=== PATIENT | female | born 1950 | race Caucasian/White ===

== ENCOUNTER 2017-05-16 13:28 | Inpatient (IN) | payer MEDICARE ==
[~2017-05-16] VITALS: Ht 160 cm; Wt 60.8 kg
[2017-05-16] VITALS (8 sets, daily range): BP systolic 123–164; BP diastolic 60–80; PULSE 64–93; RESP 14–22; O2SAT 93–99
[~2017-05-16 13:28] MED LIST: ASPI-973 PO; ATOR40TA69 PO; GLBR5T PO; INSU100I13 SUBQ; LISI40TA PO; METF500T4 PO; METO50TA3 PO; SPIR25TA PO
--- NOTE | 2017-05-16 13:38 | ED.REPORT ---
HPI-General Illness Date of Service May 16, 2017 ED Provider: Samir Paredes MD Pt is a 66 year old female with a hx of kidney stone with sepsis last year, HTN , DM and hyperlipidemia presenting to the ED complaining of 8/10 left flank pain sudden onset around 0930 this morning. Associated symptoms include shaking chills, nausea, vomiting. The pain is non radiating and is not exacerbated by movement. Denies any vaginal bleeding, urinary symptoms, dysuria, chest pain, vision changes, right sided abdominal pain, focal weakness, bloody stool, or any other symptoms at this time. Nursing Notes Stated Complaint: BACK PAIN Chief Complaint: Flank pain Nursing Notes Reviewed: Yes Allergies: Coded Allergies: No Known Allergies (Verified Allergy, Unknown, 05/16/17) Scheduled Aspirin (Aspirin) 81 Mg Tablet 81 MG PO DAILY Atorvastatin Calcium (Atorvastatin Calcium) 40 Mg Tablet 40 MG PO HS Glyburide (Glyburide) 5 Mg Tab 10 MG PO BIDWM Insulin Glargine (Lantus U100 Solostar Insulin Pen) 100 Unit/1 Ml Insuln.pen 12 UNITS SUBQ noon Lisinopril (Lisinopril) 40 Mg Tablet 40 MG PO DAILY Metformin (Metformin) 500 Mg Tablet 1,000 MG PO BIDWM Metoprolol Tartrate (Metoprolol Tartrate) 50 Mg Tablet 75 MG PO BID Spironolactone (Aldactone) 25 Mg Tablet 25 MG PO DAILY General Time Seen by MD: 13:37 Chief Complaint Other (Flank pain) Hx Obtained From: Patient, Spouse Arrived By: Walk-in Sudden in Onset?: Yes Onset Occurred: 5 - 8 hours ago Symptom Duration: Since onset Location: : Abdomen: Back Quality: Painful Severity: Current: Pain level 9 out of 10 Severity: Maximum: Severe Recent Healthcare: No recent doctor visit, No recent hospitalization Similar Sx Previous: Yes Past Medical History Past Medical History hypertension diabetes high cholesterol kidney stones with admission for sepsis in April 2016 Past Surgical History Reports: Appendectomy Smoking History Former Smoker Social History Alcohol Use: Denies alcohol use Drug Use: Denies drug use Other Social History: Good social support Ambulatory Status Independent Review of Systems Full Review of Systems Constitutional: Reports: Malaise Eyes: Denies: Blurred bilateral, Visual loss bilateral Ears / Nose / Throat: Denies: Hearing loss bilateral, Nasal congestion Respiratory: Denies: Shortness of breath Cardiovascular: Denies: Chest pain GI: Reports: Nausea, Vomiting, Denies: Abdominal pain, Bloody/tarry stool Female: Reports: Flank pain, Denies: Dysuria, Hematuria, Incontinence, Urinary frequency, Urinary urgency , Urination decreased, Urination increased, Vaginal bleeding - abnl Musculoskeletal: Denies: Extremity pain, Extremity swelling Neurologic: Denies: Focal weakness, Vision change Psychiatric: Denies: Agitation Complete sys rev & neg: except as marked. Physical Exam Nursing note and vitals reviewed. Constitutional: Well-developed, well-nourished elderly female sitting up in bed ; appears uncomfortable. Head: Normocephalic and atraumatic. Mouth/Throat: Oropharynx is clear and moist. No oropharyngeal exudate. Eyes: EOM are normal. Pupils are equal, round, and reactive to light. Neck: Supple, no tracheal deviation. Cardiovascular: Normal rate, regular rhythm. Equal and intact distal pulses throughout. Pulmonary/Chest: Effort normal and breath sounds normal. No respiratory distress. Abdominal: Soft. No distension. There is no tenderness, rebound, or guarding. Bowel sounds present. Musculoskeletal: Range of motion grossly intact, moving all extremities. No edema or tenderness appreciated. Back: Left CVA tenderness. Neurological: AOx3. Grossly nonfocal exam. Strength and sensation intact and equal to bilateral upper and lower extremities. Skin: Warm and dry, no rashes or pallor appreciated. Psychiatric: Appropriate mood and affect. Behavior appears normal. Vital Signs Vital Signs Date Time Temp Pulse Resp B/P Pulse Ox O2 Delivery O2 Flow Rate FiO2 05/16/17 17:56 37.2 80 16 123/80 97 Room Air 05/16/17 15:54 91 14 157/73 95 Room Air 05/16/17 15:45 38.2 93 18 93 Room Air 05/16/17 13:45 36.2 64 18 164/78 99 Room Air Initial VS: Reviewed Interpretation & Diagnostics Lab Results Interpretation Result Diagram: 05/16/17 1419 05/16/17 1419 Test 05/16/17 14:19 05/16/17 14:44 05/16/17 18:40 White Blood Count 13.8th/mm3 (3.8-10.1) Red Blood Count 4.16mil/mm3 (3.90-5.20) Hemoglobin 12.4g/dL (12.0-15.6) Hematocrit 37.1% (35.0-46.0) Mean Corpuscular Volume 89.2fL (81-100) Mean Corpuscular Hemoglobin 29.8pg (27.0-35.0) Mean Corpuscular Hemoglobin Concent 33.4% (32.0-37.0) Red Cell Distribution Width 12.7% (12.3-15.4) Platelet Count 280bil/L (150-400) Neutrophils (%) (Auto) 83.5% (40-74) Lymphocytes (%) (Auto) 8.9% (14-46) Monocytes (%) (Auto) 6.7% (4-12) Eosinophils (%) (Auto) 0.5% (0-5) Basophils (%) (Auto) 0.2% (0-3) Sodium Level 137mEq/L (134-144) Potassium Level 4.3mEq/L (3.5-5.2) Chloride Level 100mEq/L (97-108) Carbon Dioxide Level 20mmol/L (18-29) Blood Urea Nitrogen 25mg/dL (8-27) Creatinine 0.83mg/dL (0.57-1.00) Estimat Glomerular Filtration Rate 98mL/min (>59) Glucose Level 304mg/dL (60-99) Lactic Acid Level 1.5mmol/L (0.4-2.0) Calcium Level 9.3mg/dL (8.5-10.1) Total Bilirubin 0.4mg/dL (0.0-1.2) Aspartate Amino Transf (AST/SGOT) 32U/L (0-50) Alanine Aminotransferase (ALT/SGPT) 46U/L (0-32) Alkaline Phosphatase 194U/L (25-165) Total Protein 8.1g/dL (6.4-8.4) Albumin 4.1g/dL (3.4-5.0) Urine Color Dark yellow (YELLOW) Urine Appearance Hazy (CLEAR,HAZY) Urine pH 5.5 (5.0-8.0) Urine Specific [place] 1.015 (1.003-1.035) Urine Protein 100mg/dL (NEG,TRACE) Urine Glucose (UA) 1000mg/dL (NEGATIVE) Urine Ketones 15mg/dL (NEGATIVE) Urine Occult Blood Trace (NEGATIVE) Urine Nitrite Positive (NEGATIVE) Urine Bilirubin Negative (NEGATIVE) Urine Urobilinogen 2.0mg/dL (NORMAL) Urine Leukocyte Esterase Trace (NEGATIVE) Urine RBC 0-2/hpf (0-2) Urine WBC 11-50/hpf (0-5) Urine Epithelial Cells Few/hpf (NONE-MOD) Urine Crystals None seen (NONE SEEN) Urine Bacteria Many/hpf (NONE-FEW) Urine Hyaline Casts None/lpf (NONE) Urine Granular Casts None seen (NONE SEEN) Urine Waxy Casts None seen (NONE SEEN) Urine Red Blood Cell Casts None seen (NONE SEEN) Urine White Blood Cell Casts None seen (NONE SEEN) Urine Mucus None seen (None Seen) Urine Trichomonas None seen (NONE SEEN) Urine Yeast None (NONE SEEN) Urinalysis Comment None Hold Urine Received (Received) Prothrombin Time 10.0sec (8.1-12.5) Prothromb Time International Ratio 0.94ratio Activated Partial Thromboplast Time 24.3sec (22.8-33.0) ECG Interpretation ECG Interpretation: Probable LVH with secondary repol abnormality. Time: 16:24 Interpreted by: ED physician Normal ECG Interpretation: Normal rate (92), Normal sinus rhythm X-Ray Chest Interpretation Chest Xray Interpretation: IMPRESSION: Normal for age, source of pain is not found. Dictated by: Clayton Martinez M.D. on 05/16/2017 at 16:52 View: Portable, 1 view Interpretation / Wet Read by: Interpret - Radiologist CT Abd / Pelvis Interpretation IMPRESSION: 1. Left-sided hydronephrosis and ureterectasis with a 4 mm calculus in the bladder likely representing the sequelae of this recently passed calculus. Mass like soft tissue swelling at the left UVJ is likely inflammatory. Recommend correlation with endoscopy to exclude a bladder malignancy. 2. Tiny locule of gas in the proximal left ureter. Please correlate clinically for any evidence of infection. 3. Bilateral nonobstructing renal calculi measuring 10 mm in the left kidney. 4. A segment of the sigmoid colon and nearly the entire transverse colon are decompressed with wall thickening. Superimposed colitis or less likely a mass cannot be excluded. Recommend correlation with colonoscopy if patient has not undergone colonoscopy. Dictated by: Otis Song M.D. on 05/16/2017 at 17:02 Study type: Abdominal CT IV contrast Interpretation / Wet Read by: Interpret - Radiologist Re-Eval/Medical Decision Med Decision/Clinical Course In summary, 66-year-old female with a complex past medical history including severe sepsis last year thought to be secondary to an infected kidney stone presenting to the ED for evaluation of left flank pain, nausea, and vomiting. Differential is broad and includes small bowel obstruction, ureterolithiasis, nephrolithiasis, diverticulitis, pyelonephritis, intra-abdominal mass, hernia, etc. Upon arrival to the ED, patient appears uncomfortable, however vital signs grossly within normal limits. Patient given multiple liters of IV fluids and also multiple doses of Dilaudid and Zofran here in the ED for her symptoms. Initial workup notable for urinalysis consistent with infection, glucose 304, magnesium 1.3, alkaline phosphatase 194, ALT 46, white blood cell count 13.8 with a neutrophilic predominance. CBC and CMP otherwise grossly within normal limits. Magnesium repletion initiated. EKG with no acute ischemic changes appreciated. Upon reassessment, the patient was noted to be febrile. Given that she meets SIRS criteria and has a source of infection, patient was started on vancomycin, Zosyn, and Flagyl here in the ED for sepsis. Lactic acid of 1.5. CT scan as per above, notable for a stone in her bladder and some gas in the ureter, as well as nephrolithiasis. Given her history, urology was consulted; appreciate recommendations. No reason for acute intervention at this time, however they may consider doing a scope given the swelling around the ureter and the CT read. Discussed with patient, including need for admission. No further questions. Time of Eval: 18:00 Patient Status: Condition improved Re-Evaluation/Progress Note: Discussed CT and lab results and plan for admission. Pt understands and agrees with plan. Consultation #1: Referral / Consult Name: Trevor Bland MD Consulted With: Urology Call Returned at: 17:40 Willow Machine Operator: Agrees with plan Note: Nothing else to do from a urologic perspective right now but they will see them as an inpatient. Consultation #2: Referral / Consult Name: Fidel John MD Consulted With: Hospitalist Call Returned at: 18:34 Willow Machine Operator: Will see patient, Agrees with plan, Accepts admit Counseled Regarding: Diagnosis, Lab results, Need for admission Discharge & Departure Primary Impression: Sepsis Sepsis type: sepsis due to unspecified organism Qualified Code: A41.9 - Sepsis, unspecified organism Additional Impression: Urinary tract infection Urinary tract infection type: site unspecified Hematuria presence: without hematuria Qualified Code: N39.0 - Urinary tract infection, site not specified Disposition: ADMITTED TO HOSPITAL Discharge Condition All VS Reviewed: Yes Condition: Stable Referrals: Venus Bardales PA-C (PCP) Cristy Attestation Portions of this note were transcribed by Lilian Durbin. I, Dr. Paredes personally performed the history, physical exam and medical decision-making; I reviewed and confirmed the accuracy of the information in the transcribed note. Signed by: Cristy Almanzar, 05/16/2017. copies to: Venus Bardales PA-C, William B MD May 16, 2017 13:38 LILIAN DURBIN May 16, 2017 15:50
[2017-05-16] MEDS ORDERED: Ondansetron 2 mg/mL 2 mL Inj ONE (14:20)
[2017-05-16] MEDS: HYDROmorphone 0.5 mg/0.5 mL iSecure Syringe IVPUSH PRN ×2 (14:44→15:52)
[2017-05-16 15:04] LABS: BASOPHILS % (AUTO) 0.2 % (0-3); EOSINOPHILS % (AUTO) 0.5 % (0-5); MONOCYTES % (AUTO) 6.7 % (4-12); Mean Corpuscular Hemoglobin 29.8 pg (27.0-35.0); Mean Corpuscular Volume 89.2 fL (81-100); NEUTROPHILS % (AUTO) 83.5 % (40-74); Platelet Count 280 bil/L (150-400)
[2017-05-16 15:14] LABS: Magnesium 1.3 mg/dL (1.6-2.6)
[2017-05-16] MEDS ORDERED: 0.9% Sodium Chloride 1,000 ML IV ONE ×2 (16:07→19:20)
[2017-05-16 16:09] LABS: APPEARANCE,URINE HAZY (CLEAR,HAZY); COLOR,URINE DARK YELLOW (YELLOW); PH,URINE 5.5 (5.0-8.0)
[2017-05-16 16:10] LABS: OCCULT BLOOD,URINE TRACE (NEGATIVE)
[2017-05-16] MEDS ORDERED: metroNIDAZOLE Inj 500 MG in IV Premix 1 EACH IV ONE (16:10)
[2017-05-16] MEDS ORDERED: Piperacillin-Tazo 3.375 Gm Inj 3.375 GM in Dextrose 5% Minibag Plus 50 ML IV ONE (16:10)
[2017-05-16] MEDS ORDERED: Vancomycin Dose per Pharmacist XX ONE (16:10)
[2017-05-16] MEDS ORDERED: Vancomycin Inj 1,000 MG in IV Premix 1 EACH IV ONE (16:30)
--- NOTE | 2017-05-16 16:54 | DRSVH ---
PROCEDURE: X-RAY CHEST ONE VIEW, PORTABLE ([id number]) INDICATIONS: abd pain, fever TECHNIQUE: One view of the chest was acquired. COMPARISON: [facility], CR, XR CHEST 2VW, 06/14/2016, 16:41. [facility], CR , XR CHEST 2VW, 04/28/2016, 8:48. FINDINGS: Surgical changes and devices: None. Lungs and pleura: No pleural effusions or pneumothorax. Lungs are clear. Mediastinum: Mediastinal contours appear normal. Heart size is normal. Bones and chest wall: No suspicious bony lesions. Overlying soft tissues appear unremarkable. IMPRESSION: Normal for age, source of pain is not found. Dictated by: Clayton Martinez M.D. on 05/16/2017 at 16:52 Approved by: Clayton Martinez M.D. on 05/16/2017 at 16:52
--- NOTE | 2017-05-16 17:12 | DRSVH ---
PROCEDURE: CT ABDOMEN AND PELVIS WITH CONTRAST ([id number]) INDICATIONS: abdominal pain, back pain, n/v; hx infected stone TECHNIQUE: After the administration of intravenous contrast, 5 mm thick sections acquired from the diaphragm to the symphysis. 5 mm coronal and sagittal reformats were acquired. For radiation dose reduction, the following was used: automated exposure control, adjustment of mA and/or kV according to patient siz e. COMPARISON: None. FINDINGS: Image quality: Excellent. ABDOMEN: Lung bases: Lung bases are clear. Heart size is normal. Solid organs: Cholecystectomy with compensatory intra and extrahepatic biliary ductal dilatation. Nor mal liver parenchyma. The pancreas, spleen, adrenal glands are normal. Left-sided hydronephrosis and ureterectasis. 4 mm calculus within the bladder. There is a nonobstructing 1 cm left renal calculus. Small locule gas in the proximal left ureter. Perinephric edema. Nonobstructing 3 mm inferior right renal pole calculus. No right-sided hydronephrosis or ureterectasis. Uterus is present. Peritoneum and bowel: Mild wall thickening in the sigmoid colon (se 2 im 71). Colonic diverticulosis. The transverse colon is decompressed. No obstruction or perforation. Normal appendix and small bowel . Nodes and vessels: No retroperitoneal or mesenteric adenopathy by size criteria. Aorta and inferior vena cava are normal in size. Miscellaneous: No ventral hernias. PELVIS: Genitourinary: Prominence of the bladder at the UVJ measuring 1.5 CM. Miscellaneous: No inguinal hernias or adenopathy. Bones: No suspicious bony lesions. No vertebral body compression fractures. IMPRESSION: 1. Left-sided hydronephrosis and ureterectasis with a 4 mm calculus in the bladder likely representin g the sequelae of this recently passed calculus. Mass like soft tissue swelling at the left UVJ is li ceci inflammatory. Recommend correlation with endoscopy to exclude a bladder malignancy. 2. Tiny locule of gas in the proximal left ureter. Please correlate clinically for any evidence of in fection. 3. Bilateral nonobstructing renal calculi measuring 10 mm in the left kidney. 4. A segment of the sigmoid colon and nearly the entire transverse colon are decompressed with wall t hickening. Superimposed colitis or less likely a mass cannot be excluded. Recommend correlation with colonoscopy if patient has not undergone colonoscopy. Dictated by: Otis Song M.D. on 05/16/2017 at 17:02 Approved by: Oits Song M.D. on 05/16/2017 at 17:10
[2017-05-16 18:48] LABS: INR 0.94 ratio
[2017-05-16] MEDS ORDERED: Magnesium Sulf 2 Gm/50mL Water 2 GM in IV Premix 1 EACH IV ONE (19:25)
[2017-05-16 20:01] LABS: Magnesium 1.1 mg/dL (1.6-2.6)
[2017-05-16] MEDS ORDERED: Ondansetron 2 mg/mL 2 mL Inj IVPUSH PRN (21:25)
[2017-05-16] MEDS ORDERED: Polyethylene Glycol (PEG) 17 Gm Powder PO PRN (21:25)
[2017-05-16] MEDS ORDERED: Alum-Mag Hydrox-Simeth 30 mL Suspension PO PRN (21:25)
[2017-05-16] MEDS ORDERED: AMLO10TA3 PO (21:45)
[2017-05-16] MEDS ORDERED: Magnesium Sulf 4 Gm/100 mL H2O 4 GM in IV Premix 1 EACH IV ONE (21:55)
[2017-05-16] MEDS ORDERED: Insulin Human NPH 100 Unit/mL Syringe SUBQ ONE (22:20)
[2017-05-16] MEDS ORDERED: Insulin LISPRO Low-Dose Scale SUBQ SCH (22:21)
--- NOTE | 2017-05-16 23:25 | PCM.HPMED ---
Subjective Date of Service May 16, 2017 Primary Provider: Admitting Physician: Fede Hyatt MD Primary Care Physician: Venus Bardales PA-C Attending Physician: Fede Hyatt MD Admit Status: From the Emergency Department Chief Complaint: Left Flank Pain History of Present Illness: Silvia Carey is a 66-year-old female with a past medical history of nephrolithiasis and urosepsis, hypertension and diabetes who presents with sudden onset, severe, left-sided flank pain. She says that the pain was sharp, non-radiating, and began today at around 0900. She has had fever, nausea, and vomiting, which made the pain worse. She has been unable to eat or take any of her medications today. She has had urinary urgency, but denies dysuria and hematuria. She denies constipation, diarrhea, or blood in her stools. She denies headache, chest pain, shortness of breath, changes in vision, or changes in mental status. She was hospitalized April 2016 for urosepsis, kidney stones, and pneumonia. She denies recent hospitalization or any recent sick contacts. She had a cystoscopy, ureteroscopy, laser lithrotripsy, and a stent placed on 06/17/2016, by Dr. Hayley Benson. She has a history of UTIs that she gets every 2-3 months. Her most recent UTI was about 4 weeks ago that did not respond to ciprofloxacin and was treated with a course of levofloxacin that ended two weeks ago. In the ED, her labs showed elevated white blood cell count of 13.8 with neutrophilic predominance, elevated glucose 304, magnesium of 1.3, alkaline phosphatase of 194, ALT 46, otherwise within normal limits, including lipase and lactate 1.5. Her urinalysis showed positive nitrites, 11-50 WBC/hpf, and many bacteria, consistent with infection. Her EKG was normal. The patient received multiple liters of IV fluid, dilaudid, and ondansetron. She was also started on vancomycin, Zosyn, and metronidazole. Review of Systems: A comprehensive review of systems was conducted with the patient and found to be negative except as above in the History of Present Illness. Allergies Coded Allergies: No Known Allergies (Verified Allergy, Unknown, 05/16/17) Home Medications Medication Sig amlodipine 10 mg tablet take 1 tablet by oral route every day atorvastatin 40 mg tablet take 1 tablet by oral route every day glyburide 5 mg tablet take 2 tablet by oral route 2 times every day before breakfast Lantus Solostar 100 unit/mL (3 mL) subcutaneous insulin pen inject by subcutaneous route as per insulin protocol lisinopril 40 mg tablet take 1 tablet by oral route every day Aspirin Low Dose 81 mg tablet,delayed release take 1 tablet by oral route every day metformin 500 mg tablet take 2 tablet by oral route every 2 days with morning and evening meals metoprolol tartrate 50 mg tablet take 1.5 tablet by oral route 2 times every day with meals PMH hypertension diabetes high cholesterol kidney stones with admission for sepsis in April 2016 Surgical History Appendectomy Family History Breast Cancer Sister Breast Cancer Grandmother Social History Hx Alcohol Use: No Hx Substance Use: No Smoking Status: Former Smoker Exam Vital Signs Vital Sign - Last Date Time Temp Pulse Resp B/P Pulse Ox O2 Delivery O2 Flow Rate FiO2 05/16/17 17:56 37.2 80 16 123/80 97 Room Air Exam General: No acute distress, well-developed, well-nourished, appropriately interactive HEENT: Normocephalic, atraumatic. External ears without defect. Pupils equal, round, and reactive to light and accommodation. Anicteric sclerae, moist conjunctivae. Neck: Supple with full range of motion. No jugular venous distension. Cardiovascular: Regular rate and rhythm with systolic murmur Pulmonary: Clear to auscultation bilaterally with no crackles, wheezes, or rhonchi. Normal respiratory effort with no use of accessory muscles. Abdomen: Bowel tones present. Soft, nontender, nondistended. No hepatosplenomegaly or masses appreciated. Left sided CVA tenderness. Extremities: No clubbing, cyanosis, edema, or lymphadenopathy appreciated. Skin: Normal temperature, turgor, and texture; no rash, ulcers, or subcutaneous nodules appreciated. Neurological: Cranial nerves grossly intact. Normal muscle strength, tone, and bulk. Reflexes, coordination, and sensory function within normal limits. Psychiatric: Normal mood and affect. Alert and oriented to person, place, and time. Lab and Diagnostics Labs Item Value Date Time Glucose Level 304 mg/dL H 05/16/17 1419 Magnesium Level 1.3 mg/dL L 05/16/17 1419 Alanine Aminotransferase (ALT/SGPT) 46 U/L H 05/16/17 1419 Alkaline Phosphatase 194 U/L H 05/16/17 1419 Lactic Acid Level 1.5 mmol/L 05/16/17 1419 Urine Nitrite Positive 05/16/17 1444 Urine Occult Blood Trace 05/16/17 1444 Urine Ketones 15 mg/dL 05/16/17 1444 Urine Glucose (UA) 1000 mg/dL 05/16/17 1444 Urine Protein 100 mg/dL 05/16/17 1444 Urine Leukocyte Esterase Trace 05/16/17 1444 Urine Urobilinogen 2.0 mg/dL 05/16/17 1444 Urine RBC 0-2 /hpf 05/16/17 1444 Urine WBC 11-50 /hpf 05/16/17 1444 Urine Bacteria Many /hpf 05/16/17 1444 Result Diagram: 05/16/17 1419 05/16/17 141 Microbiology Item Value Date Time Blood Culture Received 05/16/17 0000 Blood Aerobic And Anaerobic Bottle Pending Blood Culture Received 05/16/17 1419 Blood Aerobic Bottle Pending X-Rays, CTs and MRIs PROCEDURE: X-RAY CHEST ONE VIEW, PORTABLE ([id number]) IMPRESSION: Normal for age, source of pain is not found. Dictated by: Clayton Martinez M.D. on 05/16/2017 at 16:52 PROCEDURE: CT ABDOMEN AND PELVIS WITH CONTRAST ([facility]-[id number]) IMPRESSION: 1. Left-sided hydronephrosis and ureterectasis with a 4 mm calculus in the bladder likely representing the sequelae of this recently passed calculus. Mass like soft tissue swelling at the left UVJ is likely inflammatory. Recommend correlation with endoscopy to exclude a bladder malignancy. 2. Tiny locule of gas in the proximal left ureter. Please correlate clinically for any evidence of infection. 3. Bilateral nonobstructing renal calculi measuring 10 mm in the left kidney. 4. A segment of the sigmoid colon and nearly the entire transverse colon are decompressed with wall thickening. Superimposed colitis or less likely a mass cannot be excluded. Recommend correlation with colonoscopy if patient has not undergone colonoscopy. Dictated by: Otis Song M.D. on 05/16/2017 at 17:02 12-lead ECG Sinus rhythm Probable LVH with secondary repol abnormality Assessment & Plan Silvia Carey is a 66-year-old female with a past medical history of nephrolithiasis and urosepsis, hypertension and diabetes who presents with sudden onset, severe, left-sided flank pain. Sepsis secondary to complicated Urinary tract infection, Present on Admission, Active Meets criteria with fever and leukocytosis. UA with Trace luekocyte esterase, Nitrite, and Many bacteria. Treatment for UTI ending 2 weeks ago with levofloxacin. - Received vancomycin, zosyn and flagyl in the ED as well as 2L IV fluids. - Will continue Zosyn - Monitor Urine Culture Left Kidney Stone, Present on Admission, Active - CT, There is a 10 mm stone in the central aspect of the renal pelvis. This could cause intermittent obstruction with additional 4 mm nonobstructing stone in bladder. Mass like soft tissue swelling at the left UVJ is likely inflammatory. Recommend correlation with endoscopy to exclude a bladder malignancy - Urology was consulted by ED; Per ED note, No reason for acute intervention at this time, however they may consider doing a scope given the swelling around the ureter and the CT read. - Day team should further discuss with Urology. - Patient's primary urologist is Dr. Hayley Benson - Symptomatic control with dilaudid and zofran Electrolyte abnormality, Present on admission, Active - Replace magnesium as needed Colonic Wall thickening, Present on admission, Active - Seen on CT as above. Abdominal Exam was normal. Patient has not had a colonoscopy in the past. - Will need outpatient followup. Hypertension, Present on admission, Chronic - Continue Home medications Lisinopril, Amlodipine and metoprolol Diabetes Mellitus type 2, Present on admission, Active Uncontrolled on admission with glucose of 304. Patient states she did not take medications today. - Medium dose correctional scale - Hold Metformin and Glyburide - Continue Home lantus 15 units at noon - Will give NPH 10 units now as patient has not taken meds today - Insulin High dose correctional scale Hyperlipidemia - Continue Atorvastatin Patient Status: Patient is admitted under inpatient status with expected length of stay greater than 2 midnights due to severity of presenting symptoms, risk of adverse event, and complexity of treatment plan. Code Status: Full Code VTE Prophylaxis: Sub-Q Heparin (Unfractionated) VTE Mechanical Devices: Intermittant Pneumatic CD Resuscitation Status: CPR: Attempt Resuscitation Attending Statement The patient was seen and examined together with Dr. Bonilla on 05/16 and I agree with the history, exam and plan as outlined in the note above. Fede Bonilla DO May 16, 2017 19:14 Fede Hyatt MD May 17, 2017 01:41
[2017-05-17] VITALS (8 sets, daily range): BP systolic 116–160; BP diastolic 56–74; PULSE 70–80; RESP 16–20; O2SAT 93–97
[2017-05-17] MEDS: Sodium Chloride LOK Flush 10 mL Syringe IVFLUSH SCH ×3 (00:30→16:10)
[2017-05-17] MEDS: Heparin 5,000 Unit/mL Inj SUBQ SCH ×3 (00:42→16:10)
[2017-05-17] MEDS: Piperacillin-Tazo 3.375 Gm Inj 3.375 GM in Dextrose 5% Minibag Plus 50 ML IV SCH ×3 (01:56→16:11)
--- NOTE | 2017-05-17 03:37 | NUR ---
admit note: pt. admitted for abdominal and lower flank pain. pt. having chills, pt. given tylenol. positive for kidney infection, pt. on abx. Addendum: 05/17/17 at 0624 by GELACIO UMANA RN pt. still having some abdominal/flank pain after tylenol, 0.5mg iv dilaudid given, pt. states she feels much better, chills are gone and pt. is sleeping.
[2017-05-17] MEDS: HYDROmorphone 0.5 mg/0.5 mL iSecure Syringe IVPUSH PRN ×2 (03:51→14:26)
[2017-05-17 06:12] LABS: BASOPHILS % (AUTO) 0.1 % (0-3); EOSINOPHILS % (AUTO) 0.2 % (0-5); MONOCYTES % (AUTO) 9.3 % (4-12); Mean Corpuscular Hemoglobin 30.1 pg (27.0-35.0); Mean Corpuscular Volume 90.3 fL (81-100); NEUTROPHILS % (AUTO) 82.4 % (40-74); Platelet Count 258 bil/L (150-400)
[2017-05-17 06:33] LABS: Magnesium 2.9 mg/dL (1.6-2.6)
[2017-05-17] MEDS ORDERED: Glucose 40% Oral Gel 15 Gm Tube PO PRN (07:50)
[2017-05-17] MEDS ORDERED: Dextrose 10% 250 ML IV PRN (08:00)
[2017-05-17] MEDS: Insulin LISPRO 300 Unit/3 mL Inj SUBQ SCH ×5 (08:30→21:49)
[2017-05-17] MEDS: Insulin GLARgine 100 Unit/mL Syringe SUBQ SCH (08:42)
--- NOTE | 2017-05-17 09:24 | NUR ---
Social Work- Initial Assessment Data: See Initial Assessment and Advance Directive Intervention for additional information. Pt is a 66 year old admitted 05/16/17 for sepsis, UTI per H&P. Pt's insurance is [employer]. Pt's PCP is Venus Bardales PA-C. Pt's readmit risk score is not listed at this time. SW met with pt at bedside regarding discharge plan, SW role explained. Pt alert and oriented x3. Pt's capacity for self-care assessed. Pt resides in [place], [place] in a home alone. Pt is from her at this time. Pt's designated customer contact representative for discharge planning is son Bertin Carey, . Verbal consent received to contact son. Pt is independent with ADLs and self-care. Pt uses no DME at baseline but has a cane and walker available for use. Pt drives. Pt has no history with HH services. Pt has no history with SNF services. Pt has no DPOA on file and SW provided paperwork at bedside. SW provided Discharge planning Checklist and requested that pt contact DIAL LATHE OPERATOR if needs identified. SW provided phone number and plan on whiteboard. Pt agreeable. SW will continue to follow. Assessment: Pt who is independent at baseline. Plan: Pt anticipated to discharge home with to transport via POV. No discharge planning needs identified at this time. SW will continue to follow. BETTE Jacob Addendum: 05/17/17 at 0927 by SIRENA MOON Amended: Links added.
--- NOTE | 2017-05-17 11:35 | PCM.PNMED ---
Subjective Date of Service May 17, 2017 Subjective Pt still having Left Flank pain. Chills overnight. Exam Vital Signs Vital Sign - Last Date Time Temp Pulse Resp B/P Pulse Ox O2 Delivery O2 Flow Rate FiO2 05/17/17 10:21 74 05/17/17 08:22 145/73 05/17/17 06:13 37.1 16 94 Room Air Intake and Output 05/16/17 05/16/17 05/17/17 Cumulative From/Thru 15:00 23:00 07:00 05/16/17 13:45 - 05/17/17 06:18 Intake Total 2000 ml 640 ml 2640 ml Output Total 1275 ml 1275 ml Balance 2000 ml -635 ml 1365 ml Intake Oral 640 ml 640 ml IV Total 2000 ml 2000 ml Output Urine Total 1275 ml 1275 ml Exam General: No acute distress, well-developed, well-nourished, appropriately interactive HEENT: Normocephalic, atraumatic. External ears without defect. Pupils equal, round, and reactive to light and accommodation. Anicteric sclerae, moist conjunctivae. Neck: Supple with full range of motion. No jugular venous distension. Cardiovascular: Regular rate and rhythm with systolic murmur Pulmonary: Clear to auscultation bilaterally with no crackles, wheezes, or rhonchi. Normal respiratory effort with no use of accessory muscles. Abdomen: Bowel tones present. Soft, nontender, nondistended. No hepatosplenomegaly or masses appreciated. Left sided CVA tenderness. Extremities: No clubbing, cyanosis, edema, or lymphadenopathy appreciated. Skin: Normal temperature, turgor, and texture; no rash, ulcers, or subcutaneous nodules appreciated. Neurological: Cranial nerves grossly intact. Normal muscle strength, tone, and bulk. Reflexes, coordination, and sensory function within normal limits. Psychiatric: Normal mood and affect. Alert and oriented to person, place, and time. IVs and Medications Medications Reviewed: Medications were reviewed in detail Lab and Diagnostics Result Diagram: 05/17/17 0536 05/17/17 0536 Microbiology Item Value Date Time Blood Culture Received 05/16/17 0000 Blood Aerobic And Anaerobic Bottle Pending Blood Culture Received 05/16/17 1419 Blood Aerobic Bottle Pending X-Rays, CTs and MRIs PROCEDURE: X-RAY CHEST ONE VIEW, PORTABLE ([id number]) IMPRESSION: Normal for age, source of pain is not found. Dictated by: Clayton Martinez M.D. on 05/16/2017 at 16:52 PROCEDURE: CT ABDOMEN AND PELVIS WITH CONTRAST ([id number]) IMPRESSION: 1. Left-sided hydronephrosis and ureterectasis with a 4 mm calculus in the bladder likely representing the sequelae of this recently passed calculus. Mass like soft tissue swelling at the left UVJ is likely inflammatory. Recommend correlation with endoscopy to exclude a bladder malignancy. 2. Tiny locule of gas in the proximal left ureter. Please correlate clinically for any evidence of infection. 3. Bilateral nonobstructing renal calculi measuring 10 mm in the left kidney. 4. A segment of the sigmoid colon and nearly the entire transverse colon are decompressed with wall thickening. Superimposed colitis or less likely a mass cannot be excluded. Recommend correlation with colonoscopy if patient has not undergone colonoscopy. Dictated by: Otis Song M.D. on 05/16/2017 at 17:02 12-lead ECG Sinus rhythm Probable LVH with secondary repol abnormality Assessment & Plan Silvia Carey is a 66-year-old female with a past medical history of nephrolithiasis and urosepsis, hypertension and diabetes who presents with sudden onset, severe, left-sided flank pain. Sepsis secondary to Left Pyelonephritis, Present on Admission, Active Meets criteria with fever and leukocytosis. UA with Trace luekocyte esterase, Nitrite, and Many bacteria. Treatment for UTI ending 2 weeks ago with levofloxacin. - Received vancomycin, zosyn and flagyl in the ED as well as 2L IV fluids. - WBC trending up. Pt rigors overnight. - Blood Cx- +GNR. Monitor Urine Culture. - Will continue Zosyn started 05/16 pending S&s. Left Kidney Stone, Present on Admission, Active - CT, There is a 10 mm stone in the central aspect of the renal pelvis. This could cause intermittent obstruction with additional 4 mm nonobstructing stone in bladder. Mass like soft tissue swelling at the left UVJ is likely inflammatory. Recommend correlation with endoscopy to exclude a bladder malignancy - Urology was consulted by ED; Per ED note, No reason for acute intervention at this time, however they may consider doing a scope given the swelling around the ureter and the CT read. - Patient's primary urologist is Dr. Hayley Benson - Case discussed with Urology- Dr. Bland. Repeat CT ABD to evaluate if previous stone now obstructing. Will see pt today. - c/w prn dilaudid and zofran Electrolyte abnormality, Present on admission, Active - Replace magnesium as needed Colonic Wall thickening, Present on admission, Active - Seen on CT as above. Abdominal Exam was normal. Patient has not had a colonoscopy in the past. - Will need outpatient followup. Hypertension, Present on admission, Chronic - Continue Home medications Lisinopril, Amlodipine and metoprolol Diabetes Mellitus type 2, Present on admission, Active Uncontrolled on admission with glucose of 304. Patient states she did not take medications today. - Medium dose correctional scale - Hold Metformin and Glyburide - Continue Home lantus 15 units, gave early in AM. - Will give NPH 10 units now as patient has not taken meds today - Insulin low to Medium dose correctional scale - Consider insulin gtt. Hyperlipidemia - Continue Atorvastatin Patient Status: Patient is admitted under inpatient status with expected length of stay greater than 2 midnights due to severity of presenting symptoms, risk of adverse event, and complexity of treatment plan. Code Status: Full Code VTE Prophylaxis: Sub-Q Heparin (Unfractionated) VTE Mechanical Devices: Intermittant Pneumatic CD Resuscitation Status: CPR: Attempt Resuscitation Trav Barber MD May 17, 2017 11:34
[2017-05-17] MEDS ORDERED: Insulin GLARgine 100 Unit/mL Syringe SUBQ SCH ×2 (12:00)
--- NOTE | 2017-05-17 15:46 | NUR ---
Afebrile Pt. is afebrile so far this shift. R. flank pain was constant with intermittent increased in intensity. Gave pt. PRN 0.5 mg Dilaudid IV x1 and pt. reported all pain was gone (5 to 0/10). Pt. transferred out of bed with SBA. Continue NPO until ABD/Pelvis CT resulted.
--- NOTE | 2017-05-17 15:49 | DRSVH ---
PROCEDURE: CT ABDOMEN AND PELVIS WITH CONTRAST ([id number]) INDICATIONS: Possible Obstructive Uropathy TECHNIQUE: After the administration of intravenous contrast, 5 mm thick sections acquired from the diaphragm to the symphysis. 5 mm coronal and sagittal reformats were acquired. For radiation dose reduction, the following was used: automated exposure control, adjustment of mA and/or kV according to patient debi alfaro. COMPARISON: [facility], CT, CT ABD PELVIS W CON, 05/16/2017, 16:59. FINDINGS: Image quality: Excellent. ABDOMEN: Lung bases: Scarring/atelectasis in the left lower lobe. Solid organs: Liver and spleen are normal in size and enhancement. Gallbladder surgically absent. Biliary system is non dilated. Pancreas enhances normally. No adrenal nodules. Limited evaluation given the absence of noncontrast enhanced images however the previously seen calculus in the left kid mckenzie is not definitely identified and there is decreased pelvocaliectasis. No hydronephrosis is seen. There is left perinephric stranding which is decreased since the prior eva dy. No ureteral dilatation. The previously described probable inflammatory swelling near the left ure terovesical junction is grossly unchanged. Peritoneum and bowel: Bowel loops demonstrate normal wall thickness and caliber. No free fluid or a ir. Normal appendix Nodes and vessels: No retroperitoneal or mesenteric adenopathy by size criteria. Aorta and inferior vena cava are normal in size. Miscellaneous: No ventral hernias. PELVIS: Miscellaneous: No inguinal hernias or adenopathy. Bones: No suspicious bony lesions. No vertebral body compression fractures. IMPRESSION: Previous described left renal calculus is less conspicuous or absent although limited evaluation give n the presence of IV contrast and no noncontrast images. No hydronephrosis. Dilatation of the left re nal collecting system appears mildly improved since the prior study. Mild bladder wall thickening in the region of the left UVJ as previously described probably inflammat ory in nature (given recently passed left-sided calculus) although recommend close clinical correlati on and if needed cystoscopy for followup to exclude mass lesion. Dictated by: Dwight Zamarripa M.D. on 05/17/2017 at 15:36 Approved by: Dwight Zamarripa M.D. on 05/17/2017 at 15:47
--- NOTE | 2017-05-17 18:56 | CONS ---
[address] [address] CONSULTATION REPORT PATIENT: GAYLA CAT : 1950 MR#: [id number] ADMIT: 05/16/2017 JOB ID: [id number] DATE OF SERVICE: 05/17/2017 REASON FOR CONSULTATION: 1. Urosepsis. 2. Nephrolithiasis. HISTORY OF PRESENT ILLNESS: The patient is a 66-year-old, white female with a history of recurrent UTI and nephrolithiasis. Presented to the [facility] emergency department at approximately 1330 hours yesterday afternoon with a complaint of sudden and severe onset of left flank pain at approximately 0930 in the morning of May 16, 2017. She reports the level as at least 8/10 and thus prompting her presentation to the [facility] emergency department. She has a history of adult onset diabetes, hypertension, recurrent UTI, dyslipidemia, recurrent nephrolithiasis. She was admitted for urosepsis in April 2016 and subsequently underwent stent placement and staged laser lithotripsy by Dr. Hayley Benson. She reports since then she has had UTI approximately every other month for at least the last year or two. She completed treatment of an UTI with Levaquin for approximately 10 days prior to admission. CC: Primary care physician. Upon presentation, her blood pressure was stable at 120s to 150s over 60-80, pulse rate about 90. Temperature was 38.2 on presentation. White blood cell count was 13.8 with left shift of 83.5% neutrophils. Urine was consistent with florid infection. Interestingly, I have not been able to locate a culture on the urine. Presenting glucose was 304. (She had not taken her medicines that day due to nausea and vomiting.) Creatinine 0.83. ALLERGIES: No known drug allergies. MEDICATIONS: 1. Atorvastatin 40 mg daily. 2. Amlodipine 10 mg daily. 3. Glyburide 5 mg daily. 4. Lantus 100 units/mL. 5. Lisinopril 40 mg. 6. Aspirin 81 mg. 7. Metformin 500 mg. 8. Metoprolol 50 mg. PAST MEDICAL HISTORY: Nephrolithiasis,recurrent UTI, urosepsis, dyslipidemia, diabetes mellitus, hypertension. FAMILY HISTORY: Both her grandmother and sister had breast cancer. SOCIAL HISTORY: Former cigarette smoker. No substance or alcohol use. EXAMINATION: She is sitting up in bed in obvious distress related to left kidney and flank pain. Head and neck exam is unremarkable. Sclerae clear. Neck is supple. Chest: Equal, clear and unlabored bilaterally. Heart rate is regular. No extra sounds. Abdomen is soft, moderately obese, and tender in her left upper quadrant. No guarding or rebound. CVA percussion not performed due to obvious patient distress. Extremities: Warm, no cyanosis or clubbing. Pulses are palpable in all four. DATABASE: May 17, 2017: WBC 16.4 with 82.4% neutrophils. Blood glucose 286. Creatinine 0.99. Blood cultures x2; both are positive. Demonstrated initial growth of gram-negative rods. CT KUB, May 16, 2017, is reviewed. Demonstrates a nonobstructing 3 mm right lower pole calculus, a nonobstructing 10 mm left renal calculus, and a 4 mm calculus within the bladder with associated hydroureterectasis and probable soft tissue swelling at the left ureterovesical junction. CT KUB, May 17, 2017, demonstrates probable interval passage of the bladder stone, unchanged position of the left renal calculus. Improved hydroureterectasis, likely soft tissue swelling at left UVJ, unchanged. IMPRESSION: Recurrent urinary tract infection/urosepsis in a 66-year-old woman with atrophic vaginitis and likely infected left renal stone. PLAN: 1. Await final culture and sensitivity of blood cultures and treat as indicated with appropriate intravenous oral antibiotic for three weeks. 2. I will make outpatient arrangements for cystoscopy once her urine is sterilized. 3. Will initiate treatment of atrophic vaginitis as outpatient along with probiotics, etc. 4. Ultimately left ESWL is indicated and these results will be arranged as outpatient as well. 5. Agree with current administration of piperacillin and vancomycin.
[2017-05-18] MEDS: Heparin 5,000 Unit/mL Inj SUBQ SCH ×3 (00:24→16:15)
[2017-05-18] MEDS: Piperacillin-Tazo 3.375 Gm Inj 3.375 GM in Dextrose 5% Minibag Plus 50 ML IV SCH ×2 (00:24→08:03)
[2017-05-18] MEDS: HYDROmorphone 0.5 mg/0.5 mL iSecure Syringe IVPUSH PRN ×2 (00:26→21:54)
[2017-05-18] MEDS: Sodium Chloride LOK Flush 10 mL Syringe IVFLUSH SCH ×3 (00:26→16:15)
[2017-05-18 04:09] VITALS: BP 133/73; PULSE 62; RESP 18; O2SAT 95
--- NOTE | 2017-05-18 05:01 | NUR ---
URINE Oder noted for urine culture. specimen obtained and sent to lab. results pending. patient complained of right flank pain x1 on this shift and prn Dilaudid of 0.5mg IV administered with good relief. Pt. denies any pain upon reassessment.
[2017-05-18] MEDS: Insulin LISPRO 300 Unit/3 mL Inj SUBQ SCH ×5 (08:00→22:05)
--- NOTE | 2017-05-18 08:45 | PROG NOTE ---
[address] [address] PROGRESS NOTE PATIENT: GAYLA CAT : 1950 MR#: [id number] ADMIT: 05/16/2017 JOB ID: [id number] DATE: 05/18/2017 SUBJECTIVE: She reports rather marked improvement in the last 12-16 hours. She had broth last night which she enjoyed. Denies further nausea or vomiting. She is looking forward to breakfast. She reports marked improvement in left flank pain, but residual suprapubic discomfort and pressure. OBJECTIVE: Currently temperature 37.6, T-max was 37.8. Pulse 62, respirations 18, blood pressure 133/73. O2 sats were 95% on room air. Eight hour urine output 800 cc. Laboratories are pending. Urine culture and blood culture x2 preliminary are positive for gram-negative rods. PHYSICAL EXAMINATION: She is sitting upright in bed, resting comfortably evaluating the menu. Color is good. Abdomen is soft and moderately obese. Mild tenderness to the left upper quadrant and suprapubically bowel sounds are active. IMPRESSION: As noted in initial consultation May 17, 2017. PLAN: 1. Treat infection based on pending culture, three weeks total. 2. I will arrange outpatient cystoscopy to evaluate what I think likely is edema at the ureterovesical juncture related to recent 4 mm stone passage. 3. I will arrange outpatient treatment of atrophic vaginitis. 4. I will arrange outpatient left ESWL for likely infected 10 mm left renal calculus once above in place.
[2017-05-18 09:28] VITALS: BP 122/58; PULSE 67; RESP 16; O2SAT 97
[2017-05-18 10:46] VITALS: PULSE 60
[2017-05-18] MEDS: Insulin GLARgine 100 Unit/mL Syringe SUBQ SCH (12:13)
--- NOTE | 2017-05-18 12:37 | CONS ---
[address] [address] CONSULTATION REPORT PATIENT: GAYLA CAT : 1950 MR#: [id number] ADMIT: 05/16/2017 JOB ID: [id number] DATE OF SERVICE: 05/18/2017 INFECTIOUS DISEASE CONSULTATION: I thank Dr. Barber for this timely consultation. REASON FOR CONSULT: Complicated urinary tract infection with bacteremia secondary to a highly resistant organism. HISTORY OF PRESENT ILLNESS: The patient is a 66-year-old woman who lives with her on [facility]. They moved here a few years ago from [place]. She has a history of nephrolithiasis and complicated UTI with bacteremia back in one year ago that was treated both by urologic procedures to alleviate stone as well as antibiotics. Since that time she has been troubled by recurrent UTIs and reports she has been on antibiotics multiple times including levofloxacin just a couple of weeks ago which was prescribed by her primary care doctor. She was doing pretty well though until May 15 when she developed the onset of very severe left flank pain associated with fevers, chills, and sweats. There was also some nausea and vomiting and she was unable really to do anything because of the severe pain. She also noted some urinary urgency which was new but denied hematuria. There were no associated pulmonary symptoms nor any diarrhea. In reviewing the records it is clear that a year or so ago she had cystoscopy and laser lithotripsy with a stent that had been placed by Dr. Hayley Benson. Since admission on May 16 the patient has been receiving intravenous Zosyn and has improved somewhat in that her fevers and chills have resolved and her flank pain has diminished considerably, though it is still present. Her nausea and vomiting have essentially resolved. ID consultation is requested at this time because the cultures are yielding what appears to be a very resistant organism. PAST MEDICAL HISTORY: 1. Hypertension. 2. Diabetes with fair control. Usual hemoglobin A1c said to be about eight. 3. History of nephrolithiasis status post a complicated UTI and laser lithotripsy with stent back in 2015. 4. Hyperlipidemia. SOCIAL HISTORY: The patient is a nonsmoker, having quit about 25 years ago. She does not drink alcohol and does not use drugs. FAMILY HISTORY: Negative for TB in 1st and second-degree relatives. REVIEW OF SYSTEMS: The patient currently has no significant headache or photophobia. She denies sore throat, trouble swallowing, cough, shortness of breath, or chest pain. She still has left flank pain, but her nausea and vomiting have resolved. She had no diarrhea. She did have urinary urgency before she came in and that is improving somewhat. No joint complaints. No neurologic complaints. Remainder of the review of systems negative. PHYSICAL EXAMINATION: Reveals an afebrile woman. Temperature was as high as 38.2 when she came in on the . Over the past 48 hours she has been afebrile and as mentioned now temperature is 36.9. Pulse 60, respiratory rate 16, blood pressure 123/58. She is saturating well on room air, in no acute distress, awake and alert. Head: Without trauma. Eyes: Without conjunctivitis or scleral icterus. Oral cavity: No thrush or hairy leukoplakia. Neck: Supple, without adenopathy or JVD. Lungs are clear. Cardiac tones regular rate and rhythm without murmur. Abdomen soft and nontender. There is moderately severe left flank tenderness though the patient says it is way better than when she came in. The right flank is benign. There is no suprapubic tenderness and she does not have a Gonzalez. The extremities are free of any evidence of cellulitis. There is no peripheral edema. The extremities are all well perfused, with good pulses. Neurologically she is intact. There is no evidence of synovitis and no skin rash. LABORATORIES: Include white count 13,800 when she came in on the ; a repeat yesterday was 16,000, so actually worse. Creatinine 0.99. Hemoglobin A1c 9.2, which suggests less than perfect control. Lipase normal. Urinalysis when she arrived had 11-50 white cells, no red cells. Micro studies include three of three blood cultures growing Klebsiella pneumonia. Urine is growing a similar appearing organism which has not been formally identified. It appears in talking to micro that this organism is resistant to virtually all antibiotics except carbapenem. Additional studies are underway to make sure this is an ESBL Klebsiella pneumonia. IMAGING: Includes a chest x-ray on admission which was negative, and I reviewed that x-ray. Other studies done at the time of admission included an abdominal CT which showed a left renal calculus. IMPRESSION: This patient once again, much as last year, has presented with a left-sided renal stone and a complicated bacteremic urinary tract infection. The differential here is that we now have, instead of a Klebsiella oxytoca from last year which was very susceptible to antibiotics, a Klebsiella pneumonia which appears to be highly resistant. It is likely that she is not doing well on Zosyn as our preliminary estimate of the OH is 16, which often correlates with poorer outcome. RECOMMENDATIONS: 1. Will drop the Zosyn at this time. 2. Will start ertapenem 1 g once a day. 3. We await the final identification and susceptibilities of this organism tomorrow and once these are available we can go ahead and choose which intravenous, or hopefully oral, agent she can receive over the next three weeks or so. 4. I discussed the possibility that she will require prolonged IV antibiotics with the patient. Thank you very much.
[2017-05-18] MEDS: Ertapenem Inj 1,000 MG in 0.9% Sodium Chloride 50 ML IV SCH (13:09)
[2017-05-18] MEDS ORDERED: Glucose 40% Oral Gel 15 Gm Tube PO PRN (15:30)
--- NOTE | 2017-05-18 15:41 | PCM.PNMED ---
Subjective Date of Service May 18, 2017 Subjective Pt reports improved Left Flank pain. No N/V. No chills overnight. Exam Vital Signs Vital Sign - Last Date Time Temp Pulse Resp B/P Pulse Ox O2 Delivery O2 Flow Rate FiO2 05/18/17 10:46 60 05/18/17 09:28 36.9 16 122/58 97 Room Air Intake and Output 05/17/17 05/17/17 05/18/17 Cumulative From/Thru 15:00 23:00 07:00 05/16/17 13:45 - 05/18/17 06:24 Intake Total 83 ml 869 ml 3592 ml Output Total 1050 ml 800 ml 3125 ml Balance -967 ml 69 ml 467 ml Intake Oral 0 ml 777 ml 1417 ml IV Total 83 ml 92 ml 2175 ml Output Urine Total 1050 ml 800 ml 3125 ml Exam Gen: NAD, AOx4, HEENT: NCAT, PERRLA, EOMI, MMM, sclera anicteric. Neck: Soft, supple, no thyromegaly/JVD/LAD. Resp: CTAB, no R/R/W. CV: S1 S2, RRR, No M/R/G Abd: Soft, (+) BS, NT/ND, L CVAT- improved. Ext: +PP, No edema. Skin: warm/dry/intact Neuro/Psych: Cooperative, appr mood/affect. CN II-XII grossly intact. No focal deficits. IVs and Medications Medications Reviewed: Medications were reviewed in detail Lab and Diagnostics Result Diagram: 05/17/17 0536 05/17/17 0536 Microbiology Item Value Date Time Blood Culture Received 05/16/17 0000 Blood Aerobic And Anaerobic Bottle Pending Blood Culture Received 05/16/17 1419 Blood Aerobic Bottle Pending X-Rays, CTs and MRIs PROCEDURE: X-RAY CHEST ONE VIEW, PORTABLE ([id number]) IMPRESSION: Normal for age, source of pain is not found. Dictated by: Clayton Martinez M.D. on 05/16/2017 at 16:52 PROCEDURE: CT ABDOMEN AND PELVIS WITH CONTRAST ([id number]) IMPRESSION: 1. Left-sided hydronephrosis and ureterectasis with a 4 mm calculus in the bladder likely representing the sequelae of this recently passed calculus. Mass like soft tissue swelling at the left UVJ is likely inflammatory. Recommend correlation with endoscopy to exclude a bladder malignancy. 2. Tiny locule of gas in the proximal left ureter. Please correlate clinically for any evidence of infection. 3. Bilateral nonobstructing renal calculi measuring 10 mm in the left kidney. 4. A segment of the sigmoid colon and nearly the entire transverse colon are decompressed with wall thickening. Superimposed colitis or less likely a mass cannot be excluded. Recommend correlation with colonoscopy if patient has not undergone colonoscopy. Dictated by: Otis Song M.D. on 05/16/2017 at 17:02 12-lead ECG Sinus rhythm Probable LVH with secondary repol abnormality Assessment & Plan Silvia Carey is a 66-year-old female with a past medical history of nephrolithiasis, recurrent UTI's, hypertension and diabetes who presents with sudden onset, severe, left-sided flank pain. Sepsis secondary to Left Pyelonephritis, Present on Admission, Active Meets criteria with fever and leukocytosis. UA with Trace luekocyte esterase, Nitrite, and Many bacteria. Treatment for UTI ending 2 weeks ago with levofloxacin. - Received vancomycin, zosyn and flagyl in the ED as well as 2L IV fluids. - WBC trending up. Pt rigors overnight. - Blood Cx- +GNR. Monitor Urine Culture. - Zosyn started 05/16 initial Blood Culture +Ecoli, yielding resistant organism to Zosyn with OH of 16. - Consulted ID, Dr. Dailey, rec change to Ertapenam 05/18. - Follow up S&S to determine which IV or PO antibiotic can transition to. May need salvage determiner IV Antibiotics. Left Kidney Stone, Present on Admission, Active - CT, There is a 10 mm stone in the central aspect of the renal pelvis. This could cause intermittent obstruction with additional 4 mm nonobstructing stone in bladder. Mass like soft tissue swelling at the left UVJ is likely inflammatory. Recommend correlation with endoscopy to exclude a bladder malignancy - Urology was consulted by ED; Per ED note, No reason for acute intervention at this time, however they may consider doing a scope given the swelling around the ureter and the CT read. - Inpatient Urology Consult- Dr. Bland. Updated recs 05/18 below 1. Treat infection based on pending culture, three weeks total. 2. I will arrange outpatient cystoscopy to evaluate what I think likely is edema at the ureterovesical juncture related to recent 4 mm stone passage. 3. I will arrange outpatient treatment of atrophic vaginitis. 4. I will arrange outpatient left ESWL for likely infected 10 mm left renal calculus once above in place. Diabetes Mellitus type 2, Present on admission, Active Uncontrolled on admission with glucose of 304. Ha1c- 9.2% - Hold Metformin and Glyburide - Increased Home lantus 15->20 units in AM. - Insulin low to Medium dose correctional scale, added 5u Prandial Lispro. - Recalculate Insulin requirements upon discharge and provide new regimen Electrolyte abnormality, Present on admission, Active - Replace magnesium as needed Colonic Wall thickening, Present on admission, Active - Seen on CT as above. Abdominal Exam was normal. Patient has not had a colonoscopy in the past. - Will need outpatient followup. Hypertension, Present on admission, Chronic - Continue Home medications Lisinopril, Amlodipine and metoprolol Hyperlipidemia - Continue Atorvastatin Patient Status: Patient is admitted under inpatient status with expected length of stay greater than 2 midnights due to severity of presenting symptoms, risk of adverse event, and complexity of treatment plan. Pain Evaluation: Adequate Pain Control VTE Prophylaxis: Sub-Q Heparin (Unfractionated) VTE Mechanical Devices: Intermittant Pneumatic CD Resuscitation Status: CPR: Attempt Resuscitation Trav Barber MD May 18, 2017 15:41
[2017-05-18 16:22] VITALS: BP 135/74; PULSE 57; RESP 18; O2SAT 97
--- NOTE | 2017-05-18 18:02 | NUR ---
Pain/Mobility patient has been reports being pain free throughout shift. she's been up walking several times during shift, stable on feet. independent in room. patient also reported having 2 loose stools this afternoon, possible side effect from antibiotic use. continue to monitor.
[2017-05-18 20:20] VITALS: BP 138/79; PULSE 71; RESP 16; O2SAT 95
--- NOTE | 2017-05-18 22:06 | NUR ---
inslulin Insulin verified 2units lispro with Rozina Conway RN
[2017-05-18 22:56] VITALS: PULSE 68
[2017-05-19] VITALS (8 sets, daily range): BP systolic 143–161; BP diastolic 72–80; PULSE 57–70; RESP 16–18; O2SAT 96–99
[2017-05-19] MEDS: Sodium Chloride LOK Flush 10 mL Syringe IVFLUSH SCH ×3 (01:53→16:30)
[2017-05-19] MEDS: Heparin 5,000 Unit/mL Inj SUBQ SCH ×3 (01:53→17:54)
[2017-05-19 06:21] LABS: BASOPHILS % (AUTO) 0.2 % (0-3); EOSINOPHILS % (AUTO) 2.6 % (0-5); MONOCYTES % (AUTO) 14.5 % (4-12); Mean Corpuscular Hemoglobin 29.7 pg (27.0-35.0); Mean Corpuscular Volume 90.5 fL (81-100); NEUTROPHILS % (AUTO) 54.2 % (40-74); Platelet Count 231 bil/L (150-400)
--- NOTE | 2017-05-19 07:12 | NUR ---
NOC PT up ad zakia to bathroom independently. C/O flank and abdominal pain once that had complete resolve with dilaudid. PT on RA. BG at 2200 was 243 at HS and was 144 on recheck. IV heplocks patent. WIll CTm at this time. PT waiting for culture results at this time.
[2017-05-19] MEDS: Ertapenem Inj 1,000 MG in 0.9% Sodium Chloride 50 ML IV SCH (08:18)
[2017-05-19] MEDS: Insulin LISPRO 300 Unit/3 mL Inj SUBQ SCH ×7 (08:20→21:41)
[2017-05-19] MEDS: Insulin GLARgine 100 Unit/mL Syringe SUBQ SCH (09:50)
[2017-05-19] MEDS ORDERED: Sodium Chloride LOK Flush 10 mL Syringe IVFLUSH PRN ×2 (11:20)
--- NOTE | 2017-05-19 12:21 | NUR ---
Social Work- Continued D/C Planning/ Multidisciplinary Rounds Data: EMR reviewed. Pt is on day 3 of hospitalization for Sepsis, UTI per H&P. Pt discussed in multidisciplinary rounds. Pt will require IV abx for 3 weeks. Pt is independent at baseline. Pt prefers daily outpt infusion rather than SNF, requests that it be done at [facility] rather than [facility] as pt resides in [place]. MD aware of this. MD and RADIOLOGY RN spoke regarding transfer of care and outpt infusion. MD notified that ID will have to coordinate a following physician for pt at [facility] and then RADIOLOGY RN will facilitate scheduling of infusion with [facility]. states that he will speak with ID regarding following physician. SW updated pt of plan at bedside, pt is agreeable. RN updated of plan. All updated and agreeable to plan. SW will continue to follow. Assessment: Pt who will require 3 weeks of IV abx as an outpt. Plan: ID will have to coordinate a following physician for pt at [facility] and then RADIOLOGY RN will facilitate scheduling of infusion with [facility]. states that he will speak with ID regarding following physician. ORION updated pt of plan at bedside, pt is agreeable. RN updated of plan. All updated and agreeable to plan. SW will continue to follow. Mily Reina, RADIOLOGY RN
--- NOTE | 2017-05-19 14:41 | PCM.PNMED ---
Subjective Date of Service May 19, 2017 Subjective Pt had some L flank pain last night, resolved this AM. Exam Vital Signs Vital Sign - Last Date Time Temp Pulse Resp B/P Pulse Ox O2 Delivery O2 Flow Rate FiO2 05/19/17 13:06 37.3 67 18 145/75 97 Room Air Intake and Output 05/18/17 05/18/17 05/19/17 Cumulative From/Thru 15:00 23:00 07:00 05/16/17 13:45 - 05/19/17 06:48 Intake Total 808 ml 300 ml 4700 ml Output Total 400 ml 900 ml 4425 ml Balance 408 ml -600 ml 275 ml Intake Oral 708 ml 300 ml 2425 ml IV Total 100 ml 2275 ml Output Urine Total 400 ml 900 ml 4425 ml # Voids 2 2 Exam Gen: NAD, AOx4, HEENT: NCAT, PERRLA, EOMI, MMM, sclera anicteric. Neck: Soft, supple, no thyromegaly/JVD/LAD. Resp: CTAB, no R/R/W. CV: S1 S2, RRR, No M/R/G Abd: Soft, (+) BS, NT/ND, L CVAT- resolved. Ext: +PP, No edema. Skin: warm/dry/intact Neuro/Psych: Cooperative, appr mood/affect. CN II-XII grossly intact. No focal deficits. IVs and Medications Medications Reviewed: Medications were reviewed in detail Lab and Diagnostics Result Diagram: 05/19/17 0533 05/17/17 0536 Microbiology Item Value Date Time Blood Culture Received 05/16/17 0000 Blood Aerobic And Anaerobic Bottle Pending Blood Culture Received 05/16/17 1419 Blood Aerobic Bottle Pending X-Rays, CTs and MRIs PROCEDURE: X-RAY CHEST ONE VIEW, PORTABLE ([id number]) IMPRESSION: Normal for age, source of pain is not found. Dictated by: Clayton Martinez M.D. on 05/16/2017 at 16:52 PROCEDURE: CT ABDOMEN AND PELVIS WITH CONTRAST ([id number]) IMPRESSION: 1. Left-sided hydronephrosis and ureterectasis with a 4 mm calculus in the bladder likely representing the sequelae of this recently passed calculus. Mass like soft tissue swelling at the left UVJ is likely inflammatory. Recommend correlation with endoscopy to exclude a bladder malignancy. 2. Tiny locule of gas in the proximal left ureter. Please correlate clinically for any evidence of infection. 3. Bilateral nonobstructing renal calculi measuring 10 mm in the left kidney. 4. A segment of the sigmoid colon and nearly the entire transverse colon are decompressed with wall thickening. Superimposed colitis or less likely a mass cannot be excluded. Recommend correlation with colonoscopy if patient has not undergone colonoscopy. Dictated by: Otis Song M.D. on 05/16/2017 at 17:02 12-lead ECG Sinus rhythm Probable LVH with secondary repol abnormality Assessment & Plan Silvia Carey is a 66-year-old female with a past medical history of nephrolithiasis, recurrent UTI's, hypertension and diabetes who presents with sudden onset, severe, left-sided flank pain. Sepsis secondary to Ecoli Left Pyelonephritis, Present on Admission, Active. Meets criteria with fever and leukocytosis. UA with Trace luekocyte esterase, Nitrite, and Many bacteria. Treatment for UTI ending 2 weeks ago with levofloxacin. - Received vancomycin, zosyn and flagyl in the ED initially. - WBC 13->16->8.1. - 05/16- Blood Cx and 05/18 Urine Cx- +Extended-spectrum beta-lactamases Ecoli - Zosyn started 05/16 initial Blood Culture +Ecoli, yielding resistant organism to Zosyn with OH of 16. - Consulted ID, Dr. Dailey, rec change to Ertapenam 05/18 given Sensitivity. - Will need to be d/c on 3 weeks IV Ertapenam. Will get Mid-line for access. - Pt will daily IV Infusion and would like to go to facility near home, has requested [facility] Left Kidney Stone, Present on Admission, Active - CT, There is a 10 mm stone in the central aspect of the renal pelvis. This could cause intermittent obstruction with additional 4 mm nonobstructing stone in bladder. Mass like soft tissue swelling at the left UVJ is likely inflammatory. Recommend correlation with endoscopy to exclude a bladder malignancy - Urology was consulted by ED; Per ED note, No reason for acute intervention at this time, however they may consider doing a scope given the swelling around the ureter and the CT read. - Inpatient Urology Consult- Dr. Bland. Updated recs 05/18 below 1. Treat infection based on pending culture, three weeks total. 2. I will arrange outpatient cystoscopy to evaluate what I think likely is edema at the ureterovesical juncture related to recent 4 mm stone passage. 3. I will arrange outpatient treatment of atrophic vaginitis. 4. I will arrange outpatient left ESWL for likely infected 10 mm left renal calculus once above in place. Diabetes Mellitus type 2, Present on admission, Active Uncontrolled on admission with glucose of 304. Ha1c- 9.2% - Hold Metformin and Glyburide - Increased Home lantus 15->20 units in AM. - Insulin low to Medium dose correctional scale, added 5u Prandial Lispro. - Recalculate Insulin requirements upon discharge and provide new regimen Electrolyte abnormality, Present on admission, Active - Replace magnesium as needed Colonic Wall thickening, Present on admission, Active - Seen on CT as above. Abdominal Exam was normal. Patient has not had a colonoscopy in the past. - Will need outpatient followup. Hypertension, Present on admission, Chronic - Continue Home medications Lisinopril, Amlodipine and metoprolol Hyperlipidemia - Continue Atorvastatin Patient Status: Patient is admitted under inpatient status with expected length of stay greater than 2 midnights due to severity of presenting symptoms, risk of adverse event, and complexity of treatment plan. VTE Prophylaxis: Sub-Q Heparin (Unfractionated) VTE Mechanical Devices: Intermittant Pneumatic CD Resuscitation Status: CPR: Attempt Resuscitation Trav Barber MD May 19, 2017 14:41
--- NOTE | 2017-05-19 16:02 | PROG NOTE ---
[address] [address] PROGRESS NOTE PATIENT: GAYLA CAT : 1950 MR#: [id number] ADMIT: 05/16/2017 JOB ID: [id number] DATE: 05/19/2017 INFECTIOUS DISEASE FOLLOW UP NOTE: REASON FOR FOLLOWUP: Complicated urinary tract infection with bacteremic ESBL infection. INTERVAL HISTORY: Overnight, the patient has felt quite well. She denies any fevers, chills, sore throat, cough, shortness of breath or chest pain. She has some minimal residual flank pain but it is rapidly resolving. She wants to go home soon. PHYSICAL EXAMINATION: Reveals an afebrile woman. Temperature 37.3, pulse 67, respiratory rate 18, blood pressure 145/75. She is saturating well on room air and in no acute distress whatsoever. Mental status is sharp. Oral cavity benign. Lungs clear. No real flank tenderness remains. Abdomen benign. LABORATORIES: Include white count which has dropped all the way to normal 8100, creatinine 0.99. Urinalysis 11-50 white cells. Blood cultures grew Klebsiella pneumoniae, which was sensitive to ertapenem and imipenem and no other antibiotics. Recall that the CT scan on the showed the left renal calculus. IMPRESSION: This is a complicated case of a woman with a complicated urinary tract infection with bacteremic ESBL Klebsiella. She is currently doing very well and improving rapidly on the appropriate antibiotic. There is really no other option to treat this organism at this point, other than ertapenem once a day. After considerable discussion with the hospitalist and the patient, we have arrived at a plan in which she will receive a midline or a PICC catheter today and then be discharged tomorrow morning on May 20 after her a.m. dose of ertapenem. She will then go to the [facility] medical ambulatory clinic area every day through June 08 to complete her IV ertapenem therapy. She will be receiving laboratories on a weekly basis which will be forwarded to me. RECOMMENDATIONS: 1. Midline or PICC catheter today. 2. Discharge tomorrow after a.m. dose of ertapenem. 3. She will start receiving the IV ertap[place] [facility]. 4. Over 40 minutes was spent speaking to various individuals about this case and on the telephone personally arranging the appropriate follow up studies and IV infusions [place] [facility] [place] the charge nurse there. These arrangements are complete and the patient can be discharged tomorrow. 5. ID will go ahead and sign off as things are arranged and this case discussed with Dr. Barber.
--- NOTE | 2017-05-19 17:22 | NUR ---
Social Work- Readiness for D/C Data: EMR reviewed. Pt is anticipated to d/c tomorrow morning. Pt will start receiving the IV ertapenem through [facility] on Tuesday, May 21. These arrangements are complete and the patient can be discharged tomorrow. Pt is updated and agreeable to plan. Pt will call for scheduling at [facility] and will return daily. No additional d/c needs identified. SW will continue to follow. Assessment: Pt who requires IV Ertapenem at [facility] as an outpt. Plan: Pt to d/c tomorrow and follow up at [facility] as an outpt to complete course of IV abx. Pt is updated and agreeable to plan. No additional d/c needs identified. SW will continue to follow. BETTE Jacob
[2017-05-20 00:35] VITALS: BP 164/78; PULSE 56; RESP 16; O2SAT 96
[2017-05-20] MEDS: Heparin 5,000 Unit/mL Inj SUBQ SCH ×2 (00:57→08:50)
[2017-05-20] MEDS: Sodium Chloride LOK Flush 10 mL Syringe IVFLUSH SCH ×2 (00:57→08:51)
--- NOTE | 2017-05-20 02:36 | NUR ---
Mobility/Pain Patient up walking in hallway with . Gait steady. Denies lightheadedness/dizziness. No c/o breakthrough pain. Denies pain medications when offered.
[2017-05-20 04:40] VITALS: PULSE 57
[2017-05-20 05:45] VITALS: BP 144/81; PULSE 57; RESP 16; O2SAT 99
[2017-05-20 08:00] VITALS: PULSE 60
[2017-05-20] MEDS: Ertapenem Inj 1,000 MG in 0.9% Sodium Chloride 50 ML IV SCH (08:50)
[2017-05-20] MEDS: Insulin LISPRO 300 Unit/3 mL Inj SUBQ SCH ×2 (08:52)
[2017-05-20] MEDS: Insulin GLARgine 100 Unit/mL Syringe SUBQ SCH (08:53)
[2017-05-20 08:57] VITALS: BP 147/75; PULSE 76; RESP 16; O2SAT 100
--- NOTE | 2017-05-20 09:29 | PCM.PNMED ---
Subjective Date of Service May 20, 2017 Subjective No overnight events. No L Flank pain. Denies fever/chills. Exam Vital Signs Vital Sign - Last Date Time Temp Pulse Resp B/P Pulse Ox O2 Delivery O2 Flow Rate FiO2 05/20/17 08:57 36.4 76 16 147/75 100 Room Air Intake and Output 05/19/17 05/19/17 05/20/17 Cumulative From/Thru 15:00 23:00 07:00 05/16/17 13:45 - 05/20/17 06:52 Intake Total 60 ml 900 ml 640 ml 6300 ml Output Total 1100 ml 1100 ml 6625 ml Balance 60 ml -200 ml -460 ml -325 ml Intake Oral 900 ml 640 ml 3965 ml IV Total 60 ml 2335 ml Output Urine Total 1100 ml 1100 ml 6625 ml # Voids 2 # Bowel Movements 0 0 Exam Gen: NAD, AOx4, HEENT: NCAT, PERRLA, EOMI, MMM, sclera anicteric. Neck: Soft, supple, no thyromegaly/JVD/LAD. Resp: CTAB, no R/R/W. CV: S1 S2, RRR, No M/R/G Abd: Soft, (+) BS, NT/ND, L CVAT- resolved. Ext: +PP, No edema. Skin: warm/dry/intact Neuro/Psych: Cooperative, appr mood/affect. CN II-XII grossly intact. No focal deficits. IVs and Medications Medications Reviewed: Medications were reviewed in detail Lab and Diagnostics Result Diagram: 05/19/17 0533 05/17/17 0536 Microbiology Item Value Date Time Blood Culture Received 05/16/17 0000 Blood Aerobic And Anaerobic Bottle Pending Blood Culture Received 05/16/17 1419 Blood Aerobic Bottle Pending X-Rays, CTs and MRIs PROCEDURE: X-RAY CHEST ONE VIEW, PORTABLE ([id number]) IMPRESSION: Normal for age, source of pain is not found. Dictated by: Clayton Martinez M.D. on 05/16/2017 at 16:52 PROCEDURE: CT ABDOMEN AND PELVIS WITH CONTRAST ([id number]) IMPRESSION: 1. Left-sided hydronephrosis and ureterectasis with a 4 mm calculus in the bladder likely representing the sequelae of this recently passed calculus. Mass like soft tissue swelling at the left UVJ is likely inflammatory. Recommend correlation with endoscopy to exclude a bladder malignancy. 2. Tiny locule of gas in the proximal left ureter. Please correlate clinically for any evidence of infection. 3. Bilateral nonobstructing renal calculi measuring 10 mm in the left kidney. 4. A segment of the sigmoid colon and nearly the entire transverse colon are decompressed with wall thickening. Superimposed colitis or less likely a mass cannot be excluded. Recommend correlation with colonoscopy if patient has not undergone colonoscopy. Dictated by: Otis Song M.D. on 05/16/2017 at 17:02 12-lead ECG Sinus rhythm Probable LVH with secondary repol abnormality Assessment & Plan Silvia Carey is a 66-year-old female with a past medical history of nephrolithiasis, recurrent UTI's, hypertension and diabetes who presents with sudden onset, severe, left-sided flank pain. Sepsis secondary to Ecoli Left Pyelonephritis, Present on Admission, Active. Meets criteria with fever and leukocytosis. UA with Trace luekocyte esterase, Nitrite, and Many bacteria. Treatment for UTI ending 2 weeks ago with levofloxacin. - Received vancomycin, zosyn and flagyl in the ED initially. - WBC 13->16->8.1. - 05/16- Blood Cx and 05/18 Urine Cx- +Extended-spectrum beta-lactamases Ecoli - Zosyn started 05/16 initial Blood Culture +Ecoli, yielding resistant organism to Zosyn with OH of 16. - Consulted ID, Dr. Dailey, rec change to Ertapenam 05/18 given Sensitivity. - Will need to be d/c on 3 weeks IV Ertapenam. s/p Mid-line for access. - Pt will daily IV Infusion and would like to go to facility near home, has requested [facility]. First infusion 05/21/17. Left Kidney Stone, Present on Admission, Active - CT, There is a 10 mm stone in the central aspect of the renal pelvis. This could cause intermittent obstruction with additional 4 mm nonobstructing stone in bladder. Mass like soft tissue swelling at the left UVJ is likely inflammatory. Recommend correlation with endoscopy to exclude a bladder malignancy - Urology was consulted by ED; Per ED note, No reason for acute intervention at this time, however they may consider doing a scope given the swelling around the ureter and the CT read. - Inpatient Urology Consult- Dr. Bland. Updated recs 05/18 below 1. Treat infection based on pending culture, three weeks total. 2. I will arrange outpatient cystoscopy to evaluate what I think likely is edema at the ureterovesical juncture related to recent 4 mm stone passage. 3. I will arrange outpatient treatment of atrophic vaginitis. 4. I will arrange outpatient left ESWL for likely infected 10 mm left renal calculus once above in place. Diabetes Mellitus type 2, Present on admission, Active Uncontrolled on admission with glucose of 304. Ha1c- 9.2% - Hold Metformin and Glyburide - Increased Home lantus 15->20 units in AM. - Insulin low to Medium dose correctional scale, added 5u Prandial Lispro. - Electrolyte abnormality, Present on admission, Active - Replace magnesium as needed Colonic Wall thickening, Present on admission, Active - Seen on CT as above. Abdominal Exam was normal. Patient has not had a colonoscopy in the past. - Will need outpatient followup. Hypertension, Present on admission, Chronic - Continue Home medications Lisinopril, Amlodipine and metoprolol Hyperlipidemia - Continue Atorvastatin Dispo- - Increased Lantus to 20 Units in the morning and 5 units Lispro with meals. Please check your blood sugars daily. Follow up with PCP in 1 week. - Pt will be discharged today after Ertapenam infusion. - Scheduled to receive daily IV Ertapenam for 3 weeks at [facility]. First infusion to start 05/21/17. - Follow up with Urology, Dr. Bland, in 2-3 weeks to arrange cystoscopy and to arrange outpatient left ESWL for likely infected 10 mm left renal calculus once above in place. VTE Prophylaxis: Sub-Q Heparin (Unfractionated) VTE Mechanical Devices: Intermittant Pneumatic CD Resuscitation Status: CPR: Attempt Resuscitation Trav Barber MD May 20, 2017 09:29
--- NOTE | 2017-05-20 09:38 | PCM.DIMED ---
Discharge Instructions Date of Service May 20, 2017 Dates of Hospitalization May 16, 2017 at 19:01 Discharge Diagnosis Discharge Diagnosis Sepsis secondary to Ecoli Left Pyelonephritis, Present on Admission, Active. Left Kidney Stone, Present on Admission, Active Diabetes Mellitus type 2, Present on admission, Active Electrolyte abnormality, Present on admission, Active Hypertension, Present on admission, Chronic Hyperlipidemia Medication Instructions Additional med instructions - Increased Lantus to 20 Units in the morning and 5 units Lispro with meals. Please check your blood sugars daily. Follow up with PCP in 1 week. Patient Instructions Follow-up plan - Pt will be discharged today after Ertapenam infusion. - Scheduled to receive daily IV [facility]am [facility]. First infusion to start 05/21/17. - Follow up with Urology, Dr. Bland, in 2-3 weeks to arrange cystoscopy and to arrange outpatient left ESWL for likely infected 10 mm left renal calculus once above in place. Follow-up Provider: Venus Bardales PA-C Follow-up with PCP in: 1 week Provider: Trevor Bland MD Follow-up in: 2 weeks Trav Barber MD May 20, 2017 09:38
[2017-05-20] MEDS ORDERED: INSU100V7 SUBQ (09:41)
[2017-05-20] MEDS ORDERED: INSLIS SUBQ (09:41)
[2017-05-20] MEDS ORDERED: OXYC5TAB72 PO (09:41)
--- NOTE | 2017-05-20 11:27 | NUR ---
Social Work: Discharge/Multidisciplinary Rounds D: EMR reviewed. Pt is on day 4 of hospitalization. Pt discussed in multidisciplinary rounds. Per multidisciplinary rounds, pt is medically stable for discharge home today. Pt will start receiving the IV Ertapenem at [facility] on May 21. These arrangements are complete pt has been notified. Pt is updated and agreeable to plan. Pt will call for further scheduling at [facility] and will return daily. No additional discharge needs identified. No MD orders received. Pt to discharge home via POV today. SW will continue to follow. A: Pt who requires IV Ertapenem at [facility] as an outpt. P: Pt to discharge home today via POV and follow up at [facility] as an outpt to complete course of IVABX. Pt will start receiving the IV Ertapenem at [facility] on May 21. Pt is updated and agreeable to plan. No additional discharge needs identified. No MD orders received. [facility] will continue to follow. BETTE Harry
--- NOTE | 2017-05-20 12:14 | NUR ---
Discharge Pt d/c'd from room [facility] 1022 at 1200 home via private vehicle. All discharge teaching and instructions done with pt at bedside. Diabetic education done and medication orders explained. Offered to have pharmacist come to do diabetic medication education with pt. Pt declined. Pt to have outpt IV abx at [facility] starting tomorrow 05/20/17. [facility] to schedule apt. Pt to f/u with urology in 2-3 weeks. Pt given number to schedule apt. PICC line placed with dressing. No items in the safe or pharmacy. Hard copy of RX in the chart.
--- NOTE | 2017-05-20 12:51 | PCM.DC.MED ---
Discharge Summary Date of Service May 20, 2017 Dates of Hospitalization Date of Hospital Admission May 16, 2017 at 19:01 Date of Discharge: May 20, 2017 Providers: Admitting Physician: Fede Hyatt MD Primary Care Physician: Venus Bardales PA-C Attending Physician: Brisa Phoenix MD Diagnosis at Time of Discharge Diagnosis at Time of Discharge Sepsis secondary to Ecoli Left Pyelonephritis, Present on Admission, Active. Left Kidney Stone, Present on Admission, Active Diabetes Mellitus type 2, Present on admission, Active Electrolyte abnormality, Present on admission, Active Hypertension, Present on admission, Chronic Hyperlipidemia Procedures XRay, CTs & MRIs PROCEDURE: X-RAY CHEST ONE VIEW, PORTABLE ([id number]) IMPRESSION: Normal for age, source of pain is not found. Dictated by: Clayton Martinez M.D. on 05/16/2017 at 16:52 PROCEDURE: CT ABDOMEN AND PELVIS WITH CONTRAST ([id number]) IMPRESSION: 1. Left-sided hydronephrosis and ureterectasis with a 4 mm calculus in the bladder likely representing the sequelae of this recently passed calculus. Mass like soft tissue swelling at the left UVJ is likely inflammatory. Recommend correlation with endoscopy to exclude a bladder malignancy. 2. Tiny locule of gas in the proximal left ureter. Please correlate clinically for any evidence of infection. 3. Bilateral nonobstructing renal calculi measuring 10 mm in the left kidney. 4. A segment of the sigmoid colon and nearly the entire transverse colon are decompressed with wall thickening. Superimposed colitis or less likely a mass cannot be excluded. Recommend correlation with colonoscopy if patient has not undergone colonoscopy. Dictated by: Otis Song M.D. on 05/16/2017 at 17:02 ECG 12 Lead Sinus rhythm Probable LVH with secondary repol abnormality Brief History Per HPI on 05/16/[address] Bonilla Silvia Carey is a 66-year-old female with a past medical history of nephrolithiasis and urosepsis, hypertension and diabetes who presents with sudden onset, severe, left-sided flank pain. She says that the pain was sharp, non-radiating, and began today at around 0900. She has had fever, nausea, and vomiting, which made the pain worse. She has been unable to eat or take any of her medications today. She has had urinary urgency, but denies dysuria and hematuria. She denies constipation, diarrhea, or blood in her stools. She denies headache, chest pain, shortness of breath, changes in vision, or changes in mental status. She was hospitalized April 2016 for urosepsis, kidney stones, and pneumonia. She denies recent hospitalization or any recent sick contacts. She had a cystoscopy, ureteroscopy, laser lithrotripsy, and a stent placed on 06/17/2016, by Dr. Hayley Benson. She has a history of UTIs that she gets every 2-3 months. Her most recent UTI was about 4 weeks ago that did not respond to ciprofloxacin and was treated with a course of levofloxacin that ended two weeks ago. In the ED, her labs showed elevated white blood cell count of 13.8 with neutrophilic predominance, elevated glucose 304, magnesium of 1.3, alkaline phosphatase of 194, ALT 46, otherwise within normal limits, including lipase and lactate 1.5. Her urinalysis showed positive nitrites, 11-50 WBC/hpf, and many bacteria, consistent with infection. Her EKG was normal. The patient received multiple liters of IV fluid, dilaudid, and ondansetron. She was also started on vancomycin, Zosyn, and metronidazole. Hospital Course Silvia Carey is a 66-year-old female with a past medical history of nephrolithiasis, recurrent UTI's, hypertension and diabetes who presents with sudden onset, severe, left-sided flank pain. Sepsis secondary to Ecoli Left Pyelonephritis, Present on Admission, Active. Meets criteria with fever and leukocytosis. UA with Trace luekocyte esterase, Nitrite, and Many bacteria. Treatment for UTI ending 2 weeks ago with levofloxacin. - Received vancomycin, zosyn and flagyl in the ED initially. - WBC 13->16->8.1. - 05/16- Blood Cx and 05/18 Urine Cx- +Extended-spectrum beta-lactamases Ecoli - Zosyn started 05/16 initial Blood Culture +Ecoli, yielding resistant organism to Zosyn with OH of 16. - Consulted ID, Dr. Dailey, rec change to Ertapenam 05/18 given Sensitivity. - Will need to be d/c on 3 weeks IV Ertapenam. s/p Mid-line for access. - Pt will daily IV Infusion and would like to go to facility near home, has requested [facility]. First infusion 05/21/17. Left Kidney Stone, Present on Admission, Active - CT, There is a 10 mm stone in the central aspect of the renal pelvis. This could cause intermittent obstruction with additional 4 mm nonobstructing stone in bladder. Mass like soft tissue swelling at the left UVJ is likely inflammatory. Recommend correlation with endoscopy to exclude a bladder malignancy - Urology was consulted by ED; Per ED note, No reason for acute intervention at this time, however they may consider doing a scope given the swelling around the ureter and the CT read. - Inpatient Urology Consult- Dr. Bland. Updated recs 05/18 below 1. Treat infection based on pending culture, three weeks total. 2. I will arrange outpatient cystoscopy to evaluate what I think likely is edema at the ureterovesical juncture related to recent 4 mm stone passage. 3. I will arrange outpatient treatment of atrophic vaginitis. 4. I will arrange outpatient left ESWL for likely infected 10 mm left renal calculus once above in place. Diabetes Mellitus type 2, Present on admission, Active Uncontrolled on admission with glucose of 304. Ha1c- 9.2% - Hold Metformin and Glyburide - Increased Home lantus 15->20 units in AM. - Insulin low to Medium dose correctional scale, added 5u Prandial Lispro. - Electrolyte abnormality, Present on admission, Active - Replace magnesium as needed Colonic Wall thickening, Present on admission, Active - Seen on CT as above. Abdominal Exam was normal. Patient has not had a colonoscopy in the past. - Will need outpatient followup. Hypertension, Present on admission, Chronic - Continue Home medications Lisinopril, Amlodipine and metoprolol Hyperlipidemia - Continue Atorvastatin Dispo- - Increased Lantus to 20 Units in the morning and 5 units Lispro with meals. Please check your blood sugars daily. Follow up with PCP in 1 week. - Pt will be discharged today after Ertapenam infusion. - Scheduled to receive daily IV Ertapenam for 3 weeks at [facility]. First infusion to start 05/21/17. - Follow up with Urology, Dr. Bland, in 2-3 weeks to arrange cystoscopy and to arrange outpatient left ESWL for likely infected 10 mm left renal calculus once above in place. Exam Vital Signs (Last) Date Time Temp Pulse Resp B/P Pulse Ox O2 Delivery O2 Flow Rate FiO2 05/20/17 08:57 36.4 76 16 147/75 100 Room Air Test 05/16/17 14:19 05/16/17 14:44 05/16/17 18:40 05/16/17 19:16 Lactic Acid Level 1.5mmol/L (0.4-2.0) Total Bilirubin 0.4mg/dL (0.0-1.2) Aspartate Amino Transf (AST/SGOT) 32U/L (0-50) Alanine Aminotransferase (ALT/SGPT) 46U/L (0-32) Alkaline Phosphatase 194U/L (25-165) Total Protein 8.1g/dL (6.4-8.4) Albumin 4.1g/dL (3.4-5.0) Urine Color Dark yellow (YELLOW) Urine Appearance Hazy (CLEAR,HAZY) Urine pH 5.5 (5.0-8.0) Urine Specific [place] 1.015 (1.003-1.035) Urine Protein 100mg/dL (NEG,TRACE) Urine Glucose (UA) 1000mg/dL (NEGATIVE) Urine Ketones 15mg/dL (NEGATIVE) Urine Occult Blood Trace (NEGATIVE) Urine Nitrite Positive (NEGATIVE) Urine Bilirubin Negative (NEGATIVE) Urine Urobilinogen 2.0mg/dL (NORMAL) Urine Leukocyte Esterase Trace (NEGATIVE) Urine RBC 0-2/hpf (0-2) Urine WBC 11-50/hpf (0-5) Urine Epithelial Cells Few/hpf (NONE-MOD) Urine Crystals None seen (NONE SEEN) Urine Bacteria Many/hpf (NONE-FEW) Urine Hyaline Casts None/lpf (NONE) Urine Granular Casts None seen (NONE SEEN) Urine Waxy Casts None seen (NONE SEEN) Urine Red Blood Cell Casts None seen (NONE SEEN) Urine White Blood Cell Casts None seen (NONE SEEN) Urine Mucus None seen (None Seen) Urine Trichomonas None seen (NONE SEEN) Urine Yeast None (NONE SEEN) Urinalysis Comment None Hold Urine Received (Received) Prothrombin Time 10.0sec (8.1-12.5) Prothromb Time International Ratio 0.94ratio Activated Partial Thromboplast Time 24.3sec (22.8-33.0) Lipase 27U/L (13-60) Test 05/17/17 05:36 05/19/17 05:33 Sodium Level 138mEq/L (134-144) Potassium Level 3.9mEq/L (3.5-5.2) Chloride Level 103mEq/L (97-108) Carbon Dioxide Level 21mmol/L (18-29) Blood Urea Nitrogen 19mg/dL (8-27) Creatinine 0.99mg/dL (0.57-1.00) Estimat Glomerular Filtration Rate 80mL/min (>59) Glucose Level 286mg/dL (60-99) Hemoglobin A1c 9.2% (4.8-5.6) Calcium Level 8.5mg/dL (8.5-10.1) Magnesium Level 2.9mg/dL (1.6-2.6) White Blood Count 8.1th/mm3 (3.8-10.1) Red Blood Count 3.67mil/mm3 (3.90-5.20) Hemoglobin 10.9g/dL (12.0-15.6) Hematocrit 33.2% (35.0-46.0) Mean Corpuscular Volume 90.5fL (81-100) Mean Corpuscular Hemoglobin 29.7pg (27.0-35.0) Mean Corpuscular Hemoglobin Concent 32.8% (32.0-37.0) Red Cell Distribution Width 12.4% (12.3-15.4) Platelet Count 231bil/L (150-400) Neutrophils (%) (Auto) 54.2% (40-74) Lymphocytes (%) (Auto) 28.3% (14-46) Monocytes (%) (Auto) 14.5% (4-12) Eosinophils (%) (Auto) 2.6% (0-5) Basophils (%) (Auto) 0.2% (0-3) Microbiology Results Item Value Date Time Blood Culture Received 05/16/17 0000 Blood Aerobic And Anaerobic Bottle Pending Blood Culture Received 05/16/17 1419 Blood Aerobic Bottle Pending Discharge Medications Discharge Medications Amlodipine (Amlodipine) 10 Mg Tablet 10 MG PO DAILY (Reported) Aspirin (Aspirin) 81 Mg Tablet 81 MG PO DAILY (Reported) Atorvastatin Calcium (Atorvastatin Calcium) 40 Mg Tablet 40 MG PO HS Prescribed by: DAMIAN SHAH DO Insulin Glargine (Lantus U100 Insulin Vial) 100 Unit/Ml Vial 20 UNIT SUBQ DAILY Prescribed by: BRISA PHOENIX MD Insulin Human Lispro (HumaLOG U100 Insulin Vial) 100 Unit/Ml Unit 5 UNIT SUBQ TIDWM Check blood sugars before meals and at bedtime. Use correction factor only before meals. Blood Sugar Lispro Correction: <151, 0 units; 151-175, 1 unit; 176-200, 2 units; 201-225, 3 units; 226-250, 4 units; 251-275, 5 units; 276-300 , 6 units; 301-325, 7 units; 326-350, 8 units; 351-375, 9 units; 376-400, 10 units; >400, 12 units. Prescribed by: BRISA PHOENIX MD Lisinopril (Lisinopril) 40 Mg Tablet 40 MG PO DAILY (Reported) Metformin (Metformin) 500 Mg Tablet 1,000 MG PO BIDWM (Reported) Metoprolol Tartrate (Metoprolol Tartrate) 50 Mg Tablet 75 MG PO BID Prescribed by: DAMIAN SHAH DO As needed oxyCODONE (oxyCODONE) 5 Mg Tablet 5 MG PO Q4H PRN PRN For Moderate Pain Prescribed by: BRISA PHOENIX MD Additional med instructions - Increased Lantus to 20 Units in the morning and 5 units Lispro with meals. Please check your blood sugars daily. Follow up with PCP in 1 week. Followup Plan Disposition: Home. Follow-up plan - Pt will be discharged today after Ertapenam infusion. - Scheduled to receive daily IV Ertapenam for 3 weeks at [facility]. First infusion to start 05/21/17. - Follow up with Urology, Dr. Bland, in 2-3 weeks to arrange cystoscopy and to arrange outpatient left ESWL for likely infected 10 mm left renal calculus once above in place. Follow-up Provider: Venus Bardales PA-C Follow-up with PCP in: 1 week Provider: Trevor Bland MD Follow-up in: 2 weeks Brisa Phoenix MD May 20, 2017 12:50
[2017-05-21] MEDS ORDERED: [UNRECOGNIZED DRUG - CODE] MC (13:26)
[2017-05-21] MEDS ORDERED: [UNRECOGNIZED DRUG - CODE] MC (15:09)
== END 2017-05-20 11:58 | disposition home or self-care (01) | DRG 872 ==
LOC: SED 13:28 → OSC 19:01
PROVIDERS: ADMIT Hospitalist; ATTEND Internal Medicine
DX: A41.59 Other Gram-negative sepsis (principal); N13.6 Pyonephrosis; B96.1 Klebsiella pneumoniae [K. pneumoniae] as the cause of diseases classified elsewhere; I10 Essential (primary) hypertension; E11.9 Type 2 diabetes mellitus without complications; E78.5 Hyperlipidemia, unspecified; E11.65 Type 2 diabetes mellitus with hyperglycemia; Z16.11 Resistance to penicillins; Z79.82 Long term (current) use of aspirin; Z87.891 Personal history of nicotine dependence; Z79.4 Long term (current) use of insulin